=== PATIENT | male | born 1950 | race Caucasian/White ===

== ENCOUNTER 2016-04-12 07:07 | Emergency (ER) | payer OTHER, MEDICARE ==
[~2016-04-12] VITALS: Ht 170.2 cm; Wt 83.5 kg
--- NOTE | 2016-04-12 08:12 | RADIOLOGY REPORT ---
EXAMINATION: XR PORTABLE CHEST CLINICAL INFORMATION: Hypertension and headache. COMPARISON: None. TECHNIQUE: Portable view of the chest was obtained. FINDINGS: Lungs are well expanded and clear. No pneumothorax or pleural effusion. Cardiac silhouette is normal in size. Mediastinal and hilar contours are normal. Incidentally noted is mild osteoarthrosis of the acromioclavicular joints. IMPRESSION: No acute cardiopulmonary disease.
[2016-04-12 08:21] LABS: ABSOLUTE BASOPHIL COUNT 0.1 /CUMM (0.0-0.2); ABSOLUTE EOSINOPHIL COUNT 0.1 /CUMM (0.0-0.7); ABSOLUTE GRANULOCYTE CT 3.7 /CUMM (1.4-6.5); ABSOLUTE LYMPH COUNT 1.9 /CUMM (1.2-3.4); ABSOLUTE MONOCYTE COUNT 0.3 /CUMM (0.10-0.60); BASOPHIL % 1.1 % (0.0-2.0); EOSINOPHIL % 1.7 % (0-5); HEMATOCRIT 43.5 % (42-52); MEAN CORPUSCULAR HGB 31.6 PG (27.0-31.0); MEAN CORPUSCULAR HGB CONC 33.9 G/DL (33.0-37.0); MEAN CORPUSCULAR VOLUME 93.2 FL (80.0-94.0); MEAN PLATELET VOLUME 7.2 FL (7.4-10.4); PLATELET COUNT 211 /CUMM (130-400); RED BLOOD CELL CT 4.67 /CUMM (4.70-6.10)
[2016-04-12 08:24] LABS: GRANULOCYTE % 61.9 % (42.2-75.2)
--- NOTE | 2016-04-12 08:34 | ED GENERAL ADULT ---
History of Present Illness General Chief Complaint: General Adult Stated Complaint: "I BELIEVE IM HAVING B/P ISSUES" Source: patient, family, old records Exam Limitations: no limitations Vital Signs & Intake/Output Vital Signs & Intake/Output Vital Signs Date Time Temp Pulse Resp B/P Pulse O2 O2 Flow FiO2 Ox Delivery Rate 04/12 0901 99 Room Air 04/12 0850 142/75 04/12 0825 60 142/75 04/12 0724 97.3 71 18 183/116 99 Room Air Allergies Coded Allergies: No Known Drug Allergies (04/12/16) Reconcile Medications No Known Home Medications Triage Note: C/O PRESSURE BEHIND EYES, FACIAL FLUSHING,WITH HEADACHE, NECK PAIN SINCE YESTERDAY,. STATES BP WAS UP 174/97. HASN'T BEEN TO A DOCTOR IN 8 YEARS. Triage Nurses Notes Reviewed? yes Onset: 2 years Duration: continues in ED, 2 years Timing: recent history Severity: moderate No Modifying Factors: none HPI: 2 years prior to admission patient reports episodes of high blood pressure readings with ringing in his ears and head pressure. He has delayed medical attention due to spouse illness. She denies fever chills nausea vomiting diarrhea abdominal pain chest pain shortness of breath dysuria rash bleeding change in motor sensory function change in bowel bladder habit. Past History Travel History Traveled to [place] past 21 day No Medical History Any Pertinent Medical History? none Neurological: NONE EENT: NONE Cardiovascular: NONE Respiratory: NONE Gastrointestinal: NONE Hepatic: NONE Renal: NONE Musculoskeletal: NONE Psychiatric: NONE Endocrine: NONE Surgical History Surgical History: non-contributory Psychosocial History What is your primary language Croatian Tobacco Use: Never used ETOH Use: denies use Family History Hx Contributory? No Review of Systems Review of Systems Constitutional: Reports: no symptoms. EENTM: Reports: no symptoms. Respiratory: Reports: no symptoms. Cardiovascular: Reports: no symptoms. GI: Reports: no symptoms. Genitourinary: Reports: no symptoms. Musculoskeletal: Reports: no symptoms. Skin: Reports: no symptoms. Neurological/Psychological: Reports: see HPI, headache. Hematologic/Endocrine: Reports: no symptoms. Immunologic/Allergic: Reports: no symptoms. All Other Systems: Reviewed and Negative Physical Exam Physical Exam General Appearance: well developed/nourished, no apparent distress, awake, anxious, mild distress Head: atraumatic, normal appearance Eyes: Bilateral: normal appearance, PERRL, EOMI. Ears, Nose, Throat: normal pharynx, normal ENT inspection Neck: normal inspection, supple, full range of motion, no midline tenderness Respiratory: normal breath sounds, chest non-tender, no respiratory distress, quiet respiration, lungs clear Cardiovascular: regular rate/rhythm, normal peripheral pulses, norml femoral pulses equa Peripheral Pulses: 4+ carotid (R), 4+ carotid (L), 2+ radial (R), 2+ radial (L) Gastrointestinal: normal bowel sounds, soft, non-tender, no organomegaly Back: normal inspection, normal range of motion Extremities: normal inspection, normal capillary refill, normal range of motion, no edema Neurologic/Psych: no motor/sensory deficits, awake, alert, oriented x 3, normal gait, normal mood/affect, 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 Skin: intact, normal color, warm/dry Lymphatic: no anterior cervical luz Core Measures ACS in differential dx? Yes CVA/TIA Diagnosis: No Severe Sepsis Present: No Septic Shock Present: No Progress Differential Diagnoses I considered the following diagnoses in my evaluation of the patient: Hypertension headache intracranial hemorrhage Plan of Care: Orders Procedure Date/time Status TSH REFLEX 04/12 0753 Complete TROPONIN LEVEL 04/12 0753 Complete MAGNESIUM 04/12 0753 Complete COMPREHENSIVE METABOLIC PANEL 04/12 0753 Complete CBC WITHOUT DIFFERENTIAL 04/12 0753 Complete EKG 04/12 0728 Active Laboratory Tests 04/12/16 0814: Anion Gap 6, Estimated GFR > 60, BUN/Creatinine Ratio 17.0, Glucose 96, Calcium 9.3, Magnesium 1.9, Total Bilirubin 0.5, AST 22, ALT 35, Alkaline Phosphatase 56 , Troponin I < 0.01, Total Protein 7.2, Albumin 4.4, Globulin 2.8, Albumin/ Globulin Ratio 1.6, TSH &T3 &Free T4 Intrp 1.340, CBC w Diff NO MAN DIFF REQ, RBC 4.67 L, MCV 93.2, MCH 31.6 H, RDW 13.0, MPV 7.2 L, Gran % 61.9, Lymphocytes % 30.8, Monocytes % 4.5, Eosinophils % 1.7, Basophils % 1.1, Absolute Granulocytes 3.7, Absolute Lymphocytes 1.9, Absolute Monocytes 0.3, Absolute Eosinophils 0.1, Absolute Basophils 0.1, PUBS MCHC 33.9 Diagnostic Imaging: Viewed by Me: Radiology Read, CT Scan. Discussed w/RAD: Radiology Read, CT Scan. Radiology Impression: no acute abnormality CXR Impression: no acute abnormality Initial ED EKG: normal axis, normal intervals, normal p-waves, normal QRS complex, normal sinus rhythm, no ST T wave changes Rhythm Strip: normal sinus rhythm Departure Departure Time of Disposition: 1018 Disposition: HOME OR SELF CARE Condition: Stable Clinical Impression Primary Impression: Hypertension Qualifiers: Hypertension type: essential hypertension Qualified Code: I10 - Essential (primary) hypertension Departure Forms: Customer Survey General Discharge Information Prescriptions: Current Visit Scripts No Known Home Medications Critical Care Note Critical Care Note Critical Care Time: non-applicable
--- NOTE | 2016-04-12 09:15 | CT SCAN REPORT ---
EXAMINATION: CT HEAD WITHOUT CONTRAST CLINICAL INFORMATION: Hypertension and headache. COMPARISON: None. TECHNIQUE: Contiguous axial imaging was performed from the skull base to vertex without intravenous administration of contrast. DLP: 600.71 mGy-cm. FINDINGS: There is mild atherosclerotic calcification of the cavernous carotid arteries. The brain parenchyma has normal attenuation. No evidence of cerebral edema, hemorrhage, extra-axial fluid collection, focal mass effect or midline shift. The mccullough-white matter differentiation is well-preserved; no evidence of an acute major vascular territory infarction. The ventricles have normal size and configuration. The sulci and basilar cisterns are unremarkable. The visualized paranasal sinuses, nasal cavity, nasopharynx, mastoid air cells and middle ear cavities are well aerated. There has been lens extraction from each globe. The calvarium is intact and the temporomandibular joints are normal. IMPRESSION: No acute intracranial pathology.
[2016-04-12 10:28] VITALS: BP 140/70
== END 2016-04-12 12:09 ==
LOC: ERH 07:07
PROVIDERS: Emergency Medicine
DX: I10 Essential (primary) hypertension (principal)
CPT/HCPCS: 93005; 93010